=== PATIENT | male | born 1960 | race Caucasian/White ===

== ENCOUNTER 2020-03-28 12:50 | Inpatient (IN) | payer OTHER ==
[~2020-03-28] VITALS: Ht 172.7 cm; Wt 116.7 kg
[~2020-03-28 12:50] MED LIST: AMB5 PO; ASPIR-LOW81 M1 PO; GLU500 PO; INSR; LOP100 PO; NEU300 PO; PRI20 PO; SENTRY SENIOR1 TAB PO; ZES20 PO; ZOC20 PO; [UNRECOGNIZED DRUG - OTHER] PO
[2020-03-28 14:43] LABS: BASOPHIL % 0.8 % (0-2)
[2020-03-28 15:01] LABS: PLATELET COUNT 41 x10^3mcL (130-400); RED CELL DISTRIBUTION WIDTH 15.1 % (11.5-14.5)
[2020-03-28 15:30] LABS: BILIRUBIN TOTAL 0.9 mg/dL (0.20-1.00); CALCIUM 7.5 mg/dL (8.5-10.1); CARBON DIOXIDE 21.8 mmol/L (21-32); TOTAL PROTEIN, SERUM 6.8 g/dL (6.4-8.2)
[2020-03-28 15:39] LABS: ALBUMIN 2.7 g/dL (3.4-5.0); POTASSIUM SERUM 2.9 mmol/L (3.5-5.1)
[2020-03-28] MEDS ORDERED: LYRICA75 M1 PO (18:06)
[2020-03-28] MEDS ORDERED: HYSINGLA ER30 MG PO (18:07)
[2020-03-28 18:27] LABS: MAGNESIUM 2.6 mg/dL (1.8-2.4); PHOSPHOROUS 2.4 mg/dL (2.5-4.9)
[2020-03-28 18:46] VITALS: BP 170/85
[2020-03-28 18:57] VITALS: Ht 172.7 cm; Wt 116.7 kg
[2020-03-28 20:09] VITALS: BP 162/65
[2020-03-29 05:22] VITALS: BP 145/74
[2020-03-29 06:32] LABS: UA SPECIFIC GRAVITY 1.025 (1.005-1.035); microscopic required? YES; urine erythrocyte 3+ (NEGATIVE)
[2020-03-29 07:38] LABS: CALCIUM 7.8 mg/dL (8.5-10.1); CARBON DIOXIDE 21.7 mmol/L (21-32); CHLORIDE SERUM 105 mmol/L (98-107); CREATININE SERUM 1.1 mg/dL (0.7-1.3); GFR1 > 60 mL/min; GLUCOSE SERUM 252 mg/dL (74-106); MAGNESIUM 2.4 mg/dL (1.8-2.4); PHOSPHOROUS 1.1 mg/dL (2.5-4.9); POTASSIUM SERUM 3.6 mmol/L (3.5-5.1); SODIUM SERUM 138 mmol/L (136-145)
[2020-03-29 09:00] VITALS: BP 159/83
[2020-03-29 09:25] LABS: BASOPHIL % 1.1 % (0-2); RED CELL DISTRIBUTION WIDTH 15.1 % (11.5-14.5)
[2020-03-29 10:00] LABS: PLATELET COUNT 48 x10^3mcL (130-400)
[2020-03-29 13:30] VITALS: BP 158/70
[2020-03-29 15:02] LABS: AMPHETAMINE QUAL UR NONE DETECTED (See below)
[2020-03-29 17:46] VITALS: BP 159/79
[2020-03-29 20:19] VITALS: BP 187/92
[2020-03-30] VITALS (8 sets, daily range): BP systolic 147–179; BP diastolic 72–88
[2020-03-30 07:38] LABS: RED CELL DISTRIBUTION WIDTH 14.9 % (11.5-14.5)
[2020-03-30 07:41] LABS: PLATELET COUNT 33 x10^3mcL (130-400)
[2020-03-30 07:46] LABS: CALCIUM 8.1 mg/dL (8.5-10.1); CARBON DIOXIDE 23.9 mmol/L (21-32); CHLORIDE SERUM 105 mmol/L (98-107); CREATININE SERUM 0.9 mg/dL (0.7-1.3); GFR1 > 60 mL/min; GLUCOSE SERUM 241 mg/dL (74-106); MAGNESIUM 1.9 mg/dL (1.8-2.4); PHOSPHOROUS 1.6 mg/dL (2.5-4.9); POTASSIUM SERUM 3.3 mmol/L (3.5-5.1); SODIUM SERUM 139 mmol/L (136-145)
[2020-03-30 10:42] LABS: MONOCYTE 4 % (0-7); SEGMENTED NEUTROPHILS 86 % (37-75); rbc morphology (normal/abnorm) NORMAL (NORMAL)
[2020-03-31] VITALS (7 sets, daily range): BP systolic 148–163; BP diastolic 69–79
[2020-03-31 02:24] LABS: RED CELL DISTRIBUTION WIDTH 14.4 % (11.5-14.5)
[2020-03-31 02:33] LABS: BASOPHIL % 3.3 % (0-2); PLATELET COUNT 52 x10^3mcL (130-400)
[2020-03-31 06:39] LABS: BASOPHIL % 0.9 % (0-2)
[2020-03-31 06:42] LABS: ALKALINE PHOSPHATASE 91 U/L (46-116); ALT/SGPT 23 U/L (16-63); AST/SGOT 29 U/L (15-37); BILIRUBIN TOTAL 1.19 mg/dL (0.20-1.00); CALCIUM 7.7 mg/dL (8.5-10.1); CARBON DIOXIDE 25.1 mmol/L (21-32); CHLORIDE SERUM 105 mmol/L (98-107); CREATININE SERUM 0.8 mg/dL (0.7-1.3); GFR1 > 60 mL/min; GLUCOSE SERUM 195 mg/dL (74-106); MAGNESIUM 1.8 mg/dL (1.8-2.4); POTASSIUM SERUM 3.3 mmol/L (3.5-5.1); SODIUM SERUM 138 mmol/L (136-145); TOTAL PROTEIN, SERUM 6.5 g/dL (6.4-8.2)
[2020-03-31 06:44] LABS: ALBUMIN 2.3 g/dL (3.4-5.0)
[2020-03-31 06:50] LABS: RED CELL DISTRIBUTION WIDTH 14.7 % (11.5-14.5)
[2020-03-31 08:38] LABS: PLATELET COUNT 44 x10^3mcL (130-400)
[2020-03-31 16:17] LABS: RED CELL DISTRIBUTION WIDTH 14.6 % (11.5-14.5)
[2020-03-31 16:18] LABS: PLATELET COUNT 50 x10^3mcL (130-400)
[2020-04-01 05:40] VITALS: BP 152/80
[2020-04-01 07:20] VITALS: BP 156/84
[2020-04-01 08:01] LABS: RED CELL DISTRIBUTION WIDTH 14.8 % (11.5-14.5)
[2020-04-01 08:02] LABS: PLATELET COUNT 67 x10^3mcL (130-400)
[2020-04-01 09:35] LABS: BAND NEUTROPHIL 0 % (0-10); MONOCYTE 12 % (0-7); SEGMENTED NEUTROPHILS 65 % (37-75); rbc morphology (normal/abnorm) ABNORMAL (NORMAL)
[2020-04-01 09:36] LABS: tear drop cell (dacryocyte) 1+
[2020-04-01 09:39] LABS: BASOPHIL % 0.8 % (0-2); RED CELL DISTRIBUTION WIDTH 14.4 % (11.5-14.5)
[2020-04-01 09:41] LABS: PLATELET COUNT 79 x10^3mcL (130-400)
[2020-04-01 10:19] LABS: CALCIUM 8.4 mg/dL (8.5-10.1); CHLORIDE SERUM 103 mmol/L (98-107); CREATININE SERUM 0.7 mg/dL (0.7-1.3); GFR1 > 60 mL/min; GLUCOSE SERUM 163 mg/dL (74-106); POTASSIUM SERUM 3.3 mmol/L (3.5-5.1); SODIUM SERUM 137 mmol/L (136-145)
[2020-04-01 17:52] VITALS: BP 165/73
[2020-04-01 20:08] VITALS: BP 179/97
[2020-04-02 05:50] VITALS: BP 159/73
[2020-04-02 08:17] VITALS: BP 157/74
[2020-04-02 08:24] LABS: BASOPHIL % 0.3 % (0-2)
[2020-04-02 08:38] LABS: PLATELET COUNT 74 x10^3mcL (130-400); RED CELL DISTRIBUTION WIDTH 14.8 % (11.5-14.5)
[2020-04-02 08:51] LABS: CALCIUM 7.9 mg/dL (8.5-10.1); CARBON DIOXIDE 27.1 mmol/L (21-32); CHLORIDE SERUM 101 mmol/L (98-107); CREATININE SERUM 0.9 mg/dL (0.7-1.3); GFR1 > 60 mL/min; GLUCOSE SERUM 196 mg/dL (74-106); POTASSIUM SERUM 3.6 mmol/L (3.5-5.1); SODIUM SERUM 136 mmol/L (136-145)
[2020-04-02 11:48] VITALS: BP 150/83
[2020-04-02] MEDS ORDERED: ZES10 PO (15:11)
[2020-04-02] MEDS ORDERED: LOP50 PO (15:11)
[2020-04-02] MEDS ORDERED: NOR10 PO (15:11)
[2020-04-02] MEDS ORDERED: LOVENOX30 MG/0.3 SC (15:27)
[2020-04-02 15:54] VITALS: BP 148/74
[2020-04-02 16:08] VITALS: BP 148/74
== END 2020-04-02 16:25 | disposition home health service (06) | DRG 492 ==
LOC: ED 12:50 → DU 16:43
PROVIDERS: Emergency Medicine; Podiatrist Foot & Ankle Surgery; ADMIT Family Medicine; ATTEND Family Medicine
PROC: 30233R1 Transfusion of Nonautologous Platelets into Peripheral Vein, Percutaneous Approach (ICD-10-PCS; 2020-04-01)
PROC: 30233N1 Transfusion of Nonautologous Red Blood Cells into Peripheral Vein, Percutaneous Approach (ICD-10-PCS; 2020-04-01)
PROC: 0SSG04Z Reposition Left Ankle Joint with Internal Fixation Device, Open Approach (ICD-10-PCS; principal; 2020-04-01 08:30)
DX: S82.62XA Displaced fracture of lateral malleolus of left fibula, initial encounter for closed fracture (principal); N17.0 Acute kidney failure with tubular necrosis; E87.1 Hypo-osmolality and hyponatremia; E87.6 Hypokalemia; Z20.828 Contact with and (suspected) exposure to other viral communicable diseases; I10 Essential (primary) hypertension; E78.00 Pure hypercholesterolemia, unspecified; E11.65 Type 2 diabetes mellitus with hyperglycemia; E86.0 Dehydration; W18.39XA Other fall on same level, initial encounter; Y93.89 Activity, other specified; Y92.89 Other specified places as the place of occurrence of the external cause; Y99.8 Other external cause status
CPT/HCPCS: 82962; 83880; 97116-GP; 97530-GP; G0378; J0690; J1170; J1815; J1940; J2175; J2270; J2405; J3010; J3480; J3490; J7030; J7040; J7050; P9016; P9035; Q0092; Q0163